=== PATIENT | female | born 1945 | race Caucasian/White ===

== ENCOUNTER 2017-07-20 13:55 | Emergency (ER) | payer MEDICARE, OTHER ==
[~2017-07-20] VITALS: Ht 170.2 cm; Wt 85.3 kg
[2017-07-20 14:58] LABS: RAPID INFLUENZA A Negative (Negative); RAPID INFLUENZA B Negative (Negative)
[2017-07-20 15:12] LABS: BASOPHILS # (AUTO) 0.01 x10^3/uL (0-0.1); BASOPHILS % (AUTO) 0 % (0-1); EOSINOPHILS % (AUTO) 1 % (1-7); LYMPHOCYTES # (AUTO) 0.68 x10^3/uL (1-3.4); LYMPHOCYTES % (AUTO) 9 % (22-44); MD NO; MEAN CORPUSCULAR HGB CONC 33.8 g/dL (32.4-35.8); MEAN CORPUSCULAR VOLUME 88.9 fL (80-100); MEAN PLATELET VOLUME 8.5 fL (7.4-10.4); MONOCYTES # (AUTO) 0.58 x10^3/uL (0.2-0.8); MONOCYTES % (AUTO) 7 % (2-9); NEUTROPHILS # (AUTO) 6.52 x10^3/uL (1.8-6.8); NEUTROPHILS % (AUTO) 83 % (42-75); PLATELET COUNT 253 x10^3/uL (130-400); RED BLOOD COUNT 4.86 x10^6/uL (3.82-5.3); RED CELL DISTRIBUTION WIDTH 13.6 % (9.6-15.2)
[2017-07-20 15:20] LABS: ALBUMIN 3.9 g/dL (3.4-5.0); ANION GAP 7 mmol/L (5-15); CALCIUM 9.2 mg/dL (8.5-10.1); CHLORIDE 102 mmol/L (98-107); CREATININE 0.97 mg/dL (0.55-1.02)
[2017-07-20 15:48] VITALS: BP 119/66
[2017-07-20 16:00] LABS: MICROSCOPIC NOT IND
[2017-07-20 16:05] LABS: CULTURE INDICATED? NO
== END 2017-07-20 17:06 | disposition home or self-care (01) ==
LOC: ED 17:00
DX: J02.8 Acute pharyngitis due to other specified organisms (principal); I10 Essential (primary) hypertension
CPT/HCPCS: 36415; 80048; 81003; 82040; 85025; 87400; 93005; 99285

== ENCOUNTER 2018-11-16 13:38 | Outpatient (CLI) | payer MEDICARE, OTHER ==
[2018-11-16] MEDS ORDERED: MULT-658 PO (14:15)
[2018-11-16] MEDS ORDERED: MIRA50TA PO (14:15)
[2018-11-16] MEDS ORDERED: AMIT25TA PO (14:15)
[2018-11-16] MEDS ORDERED: [UNRECOGNIZED DRUG - OTHER] PO (14:15)
[2018-11-16] MEDS ORDERED: black cohosh PO (14:15)
[2018-11-16] MEDS ORDERED: OMEP-110 PO (14:15)
[2018-11-16] MEDS ORDERED: CHOL5000 PO (14:15)
[2018-11-16] MEDS ORDERED: CRAN500C PO (14:15)
[2018-11-16] MEDS ORDERED: ESTR0.3T PO (14:15)
[2018-11-16] MEDS ORDERED: TRAM50TA2 PO (14:15)
[2018-11-16] MEDS ORDERED: LIFI1DRO EACHEYE (14:15)
[2018-11-16] MEDS ORDERED: ENAL20TA PO (14:15)
[2018-11-16] MEDS ORDERED: CLON1TAB11 PO (14:15)
[2018-11-16] MEDS ORDERED: MACA PO (14:15)
[2018-11-16] MEDS ORDERED: LUTE20TA PO (14:15)
[2018-11-16] MEDS ORDERED: B CO1TAB14 PO (14:15)
[2018-11-16] MEDS ORDERED: TURM500C4 PO (14:15)
[2018-11-16] MEDS ORDERED: CYCL1DRO EACHEYE (14:15)
[2018-11-16] MEDS ORDERED: CALC-534 PO (14:15)
[2018-11-16] MEDS ORDERED: beet root PO (14:15)
[2018-11-16] MEDS ORDERED: potassium PO (14:15)
[2018-11-16] MEDS ORDERED: [UNRECOGNIZED DRUG - OTHER] PO (14:15)
[2018-11-16] MEDS ORDERED: ASCO10004 PO (14:15)
[2018-11-16] MEDS ORDERED: DONE5TAB7 PO (14:15)
[2018-11-16 14:42] LABS: MICROSCOPIC AUTO
[2018-11-16 14:44] LABS: CULTURE INDICATED? YES
[2018-11-16 14:50] LABS: ALANINE AMINOTRANSFERASE 28 U/L (12-78); ALBUMIN 3.8 g/dL (3.4-5.0); ANION GAP 5 mmol/L (5-15); CALCIUM 9.4 mg/dL (8.5-10.1); CHLORIDE 108 mmol/L (98-107); CREATININE 1.01 mg/dL (0.55-1.02)
[2018-11-16 14:51] LABS: BASOPHILS # (AUTO) 0.06 x10^3/uL (0-0.1); BASOPHILS % (AUTO) 1 % (0-1); EOSINOPHILS % (AUTO) 2 % (1-7); LYMPHOCYTES # (AUTO) 2.14 x10^3/uL (1-3.4); LYMPHOCYTES % (AUTO) 20 % (22-44); MD NO; MEAN CORPUSCULAR HEMOGLOBIN 30.4 pg (27.0-34.8); MEAN CORPUSCULAR HGB CONC 33.8 g/dL (32.4-35.8); MEAN PLATELET VOLUME 8.6 fL (7.4-10.4); MONOCYTES # (AUTO) 0.56 x10^3/uL (0.2-0.8); MONOCYTES % (AUTO) 5 % (2-9); NEUTROPHILS # (AUTO) 7.93 x10^3/uL (1.8-6.8); NEUTROPHILS % (AUTO) 73 % (42-75); PLATELET COUNT 296 x10^3/uL (130-400); RED BLOOD COUNT 4.84 x10^6/uL (3.82-5.3)
[2018-11-16 14:52] LABS: ALKALINE PHOSPHATASE 111 U/L (45-117); BILIRUBIN,TOTAL 0.1 mg/dL (0.2-1.0); TOTAL PROTEIN 7.6 g/dL (6.4-8.2)
[2018-11-16 15:17] LABS: INTERNATIONAL NORMALIZED RATIO 0.98 (0.93-1.1); PROTHROMBIN TIME 10.3 Seconds (9.6-11.5)
== END 2018-11-16 23:59 | disposition home or self-care (01) ==
LOC: STAR 13:38
PROVIDERS: ATTEND Neurological Surgery
DX: Z01.811 Encounter for preprocedural respiratory examination (principal); M48.02 Spinal stenosis, cervical region; R79.1 Abnormal coagulation profile; M47.814 Spondylosis without myelopathy or radiculopathy, thoracic region; I10 Essential (primary) hypertension; R82.998 Other abnormal findings in urine
CPT/HCPCS: 36415; 71046; 80053; 81001; 85025; 85610; 85730; 87077; 87086; 87186; 93005

== ENCOUNTER 2018-11-20 10:30 | Inpatient (IN) | payer MEDICARE, OTHER ==
[~2018-11-20] VITALS: Ht 167.6 cm; Wt 92.3 kg
[~2018-11-20 10:30] MED LIST: AMIT25TA PO; ASCO10004 PO; B CO1TAB14 PO; CALC-534 PO; CHOL5000 PO; CLON1TAB11 PO; CRAN500C PO; CYCL1DRO EACHEYE; DONE5TAB7 PO; ENAL20TA PO; ESTR0.3T PO; LIFI1DRO EACHEYE; LUTE20TA PO; MACA PO; MIRA50TA PO; MULT-658 PO; OMEP-110 PO; TRAM50TA2 PO; TURM500C4 PO; [UNRECOGNIZED DRUG - OTHER] PO; [UNRECOGNIZED DRUG - OTHER] PO; beet root PO; black cohosh PO; potassium PO
[2018-12-11] MEDS ORDERED: BUPIVACAINE/PF-EPI 0.5% 1:200K ONE (06:33)
[2018-12-11] MEDS ORDERED: THROMBIN 20,000 UNIT VIAL TP ONE (06:33)
[2018-12-11] MEDS ORDERED: BACITRACIN 50,000 UNIT ONE (06:33)
[2018-12-11] MEDS ORDERED: VANCOMYCIN PER PHARMACY MC SCH (09:00)
[2018-12-11] MEDS ORDERED: PROPOFOL 50 ML ONE ×2 (09:04→12:25)
[2018-12-11] MEDS ORDERED: ROCURONIUM 10MG/ML,5ML ONE (09:24)
[2018-12-11] MEDS ORDERED: CEFAZOLIN 1,000 MG ONE (09:24)
[2018-12-11] MEDS ORDERED: DEXAMETHASONE 4 MG/ML, 1ML ONE (09:24)
[2018-12-11] MEDS ORDERED: NEOSTIGMINE 1 MG/ML, 10ML ONE (09:24)
[2018-12-11] MEDS ORDERED: LACTATED RINGERS 1,000 ML IV SCH (09:24)
[2018-12-11] MEDS ORDERED: GLYCOPYRROLATE 0.2MG/1ML, 5ML ONE (09:24)
[2018-12-11] MEDS ORDERED: FENTANYL PF 250 MCG/5ML ONE ×2 (09:24→12:33)
[2018-12-11] MEDS ORDERED: ONDANSETRON 2MG/ML, 2ML ONE (09:24)
[2018-12-11] MEDS ORDERED: PROPOFOL 10 MG/ML, 20ML ONE (09:24)
[2018-12-11] MEDS ORDERED: ACETAMINOPHEN 500 MG TABLET PO ONE (09:30)
[2018-12-11] MEDS ORDERED: GABAPENTIN 300 MG CAPSULE PO ONE (09:30)
[2018-12-11 09:50] VITALS: BP 124/81
[2018-12-11] MEDS ORDERED: VANCOMYCIN 1,000 MG ONE (11:35)
[2018-12-11] MEDS ORDERED: PHENYLEPHRINE 10 MG/ML ONE (11:52)
[2018-12-11] MEDS ORDERED: SUCCINYLCHOLINE 20 MG/ML, 10ML ONE (11:52)
[2018-12-11] MEDS ORDERED: PROMETHAZINE 12.5 MG SUPP PR PRN (12:00)
[2018-12-11] MEDS ORDERED: OXYcodone 5 MG/5 ML ORAL.SOL UDC PO PRN (12:00)
[2018-12-11] MEDS ORDERED: ONDANSETRON ODT 8 MG PO PRN (12:00)
[2018-12-11] MEDS ORDERED: PROMETHAZINE 25 MG/ML, 1ML IV PRN (12:00)
[2018-12-11] MEDS ORDERED: hydrALAzine 20 MG/ML, 1ML IV PRN (12:00)
[2018-12-11] MEDS ORDERED: MEPERIDINE/PF 25MG/0.5ML IVPush PRN (12:00)
[2018-12-11] MEDS ORDERED: ONDANSETRON 2MG/ML, 2ML IV PRN (12:00)
[2018-12-11] MEDS ORDERED: PROMETHAZINE 25 MG SUPP PR PRN (12:00)
[2018-12-11] MEDS ORDERED: MORPHINE SULFATE 4 MG/ML, 1ML IVPush PRN (12:00)
[2018-12-11] MEDS ORDERED: FENTANYL PF 100 MCG/2ML IV PRN (12:00)
[2018-12-11] MEDS ORDERED: LABETALOL 5MG/ML, 20ML IV PRN (12:00)
[2018-12-11] MEDS ORDERED: PROMETHAZINE 25 MG/ML, 1ML IM PRN ×3 (12:00→14:00)
[2018-12-11] MEDS ORDERED: SENNA/DOCUSATE TABLET PO PRN (14:00)
[2018-12-11] MEDS ORDERED: HYDROcodone/APAP 5/325 TABLET PO PRN (14:00)
[2018-12-11] MEDS ORDERED: OXYcodone/APAP 5/325MG TABLET PO PRN (14:00)
[2018-12-11] MEDS ORDERED: BISACODYL 10 MG SUPP PR PRN (14:00)
[2018-12-11] MEDS ORDERED: PHARMACY MAY ADJ FOR RENAL FX MC PRN (14:00)
[2018-12-11] MEDS ORDERED: ONDANSETRON 2MG/ML, 2ML IVPush PRN (14:00)
[2018-12-11] MEDS ORDERED: morphine SULFATE 10 MG/ML, 1ML IVPush PRN (14:00)
[2018-12-11] MEDS ORDERED: METHOCARBAMOL 750 MG TABLET PO PRN (14:00)
[2018-12-11] MEDS ORDERED: DIPHENHYDRAMINE 50 MG/ML, 1ML IVPush PRN (14:00)
[2018-12-11] MEDS ORDERED: FENTANYL PF 100 MCG/2ML ONE (14:25)
[2018-12-11] MEDS ORDERED: OXYcodone 5 MG/5 ML ORAL.SOL UDC ONE (14:25)
[2018-12-11] MEDS ORDERED: HYDROmorphone 2 MG/ML, 1ML ONE (14:34)
[2018-12-11] MEDS: HYDROmorphone 2 MG/ML, 1ML IVPush PRN ×2 (14:36→14:42)
[2018-12-11] MEDS ORDERED: PHARMACOKINETIC CONSULTATION MC ONE (16:00)
[2018-12-11] MEDS ORDERED: VANCOMYCIN PMX 1GM/200ML 200 ML IV ONE (16:00)
[2018-12-11] MEDS: HYDROcodone/APAP 10/325 MG TABLET PO PRN ×2 (18:10→22:12)
[2018-12-11] MEDS: D5%-0.9% NACL+KCL 20MEQ 1,000 ML IV SCH (18:10)
[2018-12-11 19:45] VITALS: BP 109/70
[2018-12-11] MEDS: ENALAPRIL 20MG TABLET PO SCH (21:00)
[2018-12-11] MEDS: SODIUM CHLORIDE FLUSH 10ML SYR IVF SCH (21:00)
[2018-12-11] MEDS: ESTROGEN CONJUGATED 0.3 MG TABLET PO SCH (21:00)
[2018-12-11] MEDS: AMITRIPTYLINE 25 MG TABLET PO SCH (21:00)
[2018-12-11] MEDS: CYCLOBENZAPRINE 10 MG TABLET PO PRN (22:56)
[2018-12-12] MEDS ORDERED: VANCOMYCIN PMX 1GM/200ML 200 ML IV SCH
[2018-12-12 00:15] VITALS: BP 113/68
[2018-12-12] MEDS: HYDROcodone/APAP 10/325 MG TABLET PO PRN ×5 (02:51→20:32)
[2018-12-12] MEDS: D5%-0.9% NACL+KCL 20MEQ 1,000 ML IV SCH (04:25)
[2018-12-12 05:08] LABS: CREATININE 0.77 mg/dL (0.55-1.02)
[2018-12-12 07:14] VITALS: BP 119/75
[2018-12-12] MEDS: CYCLOBENZAPRINE 10 MG TABLET PO PRN ×2 (08:22→20:32)
[2018-12-12] MEDS: DONEPEZIL 5 MG TABLET PO SCH (08:49)
[2018-12-12] MEDS: OMEPRAZOLE 20 MG CAPSULE.DR PO SCH (08:49)
[2018-12-12] MEDS: ENALAPRIL 20MG TABLET PO SCH ×2 (08:49→20:32)
[2018-12-12] MEDS: MULTIVITAMIN 1 TABLET PO SCH (08:49)
[2018-12-12] MEDS: SODIUM CHLORIDE FLUSH 10ML SYR IVF SCH ×2 (08:49→20:32)
[2018-12-12] MEDS: (Mirabegron** (Myrbetriq**) 50 MG) PO SCH (08:56)
[2018-12-12 13:45] VITALS: BP 118/75
[2018-12-12 19:24] VITALS: BP 125/74
[2018-12-12] MEDS: ESTROGEN CONJUGATED 0.3 MG TABLET PO SCH (20:32)
[2018-12-12] MEDS: AMITRIPTYLINE 25 MG TABLET PO SCH (20:32)
[2018-12-12] MEDS ORDERED: VANCOMYCIN 1,600 MG in SODIUM CHLORIDE 0.9% 250 ML IV SCH (23:00)
[2018-12-13] MEDS: D5%-0.9% NACL+KCL 20MEQ 1,000 ML IV SCH ×2 (00:40→12:00)
[2018-12-13] MEDS: HYDROcodone/APAP 10/325 MG TABLET PO PRN ×4 (01:05→14:03)
[2018-12-13 03:13] VITALS: BP 110/57
[2018-12-13 06:58] VITALS: BP 146/73
[2018-12-13] MEDS: MULTIVITAMIN 1 TABLET PO SCH (08:24)
[2018-12-13] MEDS: OMEPRAZOLE 20 MG CAPSULE.DR PO SCH (08:24)
[2018-12-13] MEDS: ENALAPRIL 20MG TABLET PO SCH (08:24)
[2018-12-13] MEDS: DONEPEZIL 5 MG TABLET PO SCH (08:25)
[2018-12-13] MEDS: SODIUM CHLORIDE FLUSH 10ML SYR IVF SCH (08:27)
[2018-12-13] MEDS: (Mirabegron** (Myrbetriq**) 50 MG) PO SCH (08:27)
[2018-12-13] MEDS ORDERED: HYDR-3307 PO (12:31)
[2018-12-13] MEDS ORDERED: CYCL-259 PO (12:32)
[2018-12-13] MEDS ORDERED: DOXY100C2 PO (12:34)
[2018-12-13] MEDS ORDERED: PRED10TA14 PO (12:36)
[2018-12-13 14:19] VITALS: BP 144/80
== END 2018-12-13 15:00 | disposition home or self-care (01) | DRG 472 ==
LOC: ORIP 12-11 09:01 → 4NOR 12-11 15:10
PROVIDERS: ADMIT Neurological Surgery; ATTEND Neurological Surgery
PROC: 0RB30ZZ Excision of Cervical Vertebral Disc, Open Approach (ICD-10-PCS; 2018-12-11)
PROC: 01N10ZZ Release Cervical Nerve, Open Approach (ICD-10-PCS; 2018-12-11)
PROC: 4A11X4G Monitoring of Peripheral Nervous Electrical Activity, Intraoperative, External Approach (ICD-10-PCS; 2018-12-11)
PROC: 00NW0ZZ Release Cervical Spinal Cord, Open Approach (ICD-10-PCS; 2018-12-11)
PROC: 0RG20A0 Fusion of 2 or more Cervical Vertebral Joints with Interbody Fusion Device, Anterior Approach, Anterior Column, Open Approach (ICD-10-PCS; principal; 2018-12-11 12:00)
DX: M48.02 Spinal stenosis, cervical region (principal); G95.29 Other cord compression; I10 Essential (primary) hypertension; M50.121 Cervical disc disorder at C4-C5 level with radiculopathy; K21.9 Gastro-esophageal reflux disease without esophagitis; Z88.1 Allergy status to other antibiotic agents; Z88.2 Allergy status to sulfonamides; Z88.8 Allergy status to other drugs, medicaments and biological substances
CPT/HCPCS: 36415; 72040; 82565; 86850; 86900; C1713; G0378; J0690; J1100; J1170; J2405; J2704; J2710; J3010; J3370; C1762; J0330; J2370; J3480; J7050; J7120

== ENCOUNTER → 2018-12-02 | Outpatient (CLI) | payer MEDICARE, OTHER ==
[2018-12-02 13:59] LABS: MICROSCOPIC NOT IND
[2018-12-02 14:02] LABS: CULTURE INDICATED? NO
== END | disposition home or self-care (01) ==
LOC: LAB 13:32
PROVIDERS: ATTEND Neurological Surgery
DX: Z01.810 Encounter for preprocedural cardiovascular examination (principal); Z01.811 Encounter for preprocedural respiratory examination; Z01.812 Encounter for preprocedural laboratory examination; M48.02 Spinal stenosis, cervical region; R79.1 Abnormal coagulation profile
CPT/HCPCS: 81003